=== PATIENT | female | born 1945 | race Asian ===

== ENCOUNTER 2017-01-02 23:33 | Emergency (ER) | payer SELFPAY ==
[2017-01-03 00:41] VITALS: BMI 30.1
[2017-01-03] MEDS ORDERED: SODIUM CHLORIDE 2,000 ML IV ONE (01:26)
[2017-01-03 02:13] LABS: VENOUS BLOOD GAS HCO3 24.1 meq/L (19-25); VENOUS PH 7.42 (7.32-7.42)
[2017-01-03] MEDS ORDERED: CEFTRIAXONE 1 GM in DEXTROSE 5%-WATER - 50 ML IVPB ONE (02:23)
--- NOTE | 2017-01-03 02:23 | PDOC ---
History of Present Illness - General History Source: Patient Exam Limitations: No Limitations - History of Present Illness Initial Comments: 01/03/17 02:26 Patient is a 71 year old female with a significant past medical history of Diabetes, HTN, Hyperthyroidism who presents to the ED with complaints of dysuria that began 3 days ago. Patient reports Dysuria began 3 days ago while at home with no signs of subsiding. She reports experiencing episodes of Urinary urgency secondary to dysuria. Patient reports experiencing intermittent Increased thirst, fever and chills secondary to dysuria. As per patient's daughter, patient had temperature of 101 at 10pm tonight. Daughter states patients fever was lowered after given Tylenol. As Per patient's daughter , patient travelled from [place] 3 months ago. Denies chest pain, SOB. Denies diarrhea, constipation. Denies contact with sick individual. Denies running nose, congestion. Denies nausea, vomiting. Denies any other symptoms. Allergies: None Social history: Lives with daughter. No smoking. No alcohol. No illicit drugs. Surgical history: None PMD: None <Jitendra Simms - Last Filed: 01/03/17 02:26> <Kurt Triplett - Last Filed: 01/03/17 04:07> - General Chief Complaint: SIRS, Suspected/Possible Stated Complaint: FEVER Time Seen by Provider: 01/03/17 01:03 Past History <Jitendra Simms - Last Filed: 01/03/17 02:26> - Suicide/Smoking/Psychosocial Hx Smoking History: Never smoked Have you smoked in the past 12 months: No Information on smoking cessation initiated: No Hx Alcohol Use: No Drug/Substance Use Hx: No <Kurt Triplett - Last Filed: 01/03/17 04:07> - Past Medical History Allergies/Adverse Reactions: Allergies Allergy/AdvReac Type Severity Reaction Status Date / Time No Known Allergies Allergy Verified 01/03/17 00:17 Home Medications: Ambulatory Orders Sulfamethoxazole/Trimethoprim [Bactrim Ds -] 1 tab PO BID #20 tablet 01/03/17 Review of Systems - Review of Systems Constitutional: Yes: Chills, Fever HEENTM: No: Throat Pain Respiratory: No: Cough, Shortness of Breath Cardiac (ROS): No: Chest Pain, Syncope ABD/GI: No: Constipated, Diarrhea, Nausea, Vomiting : Yes: See HPI Neurological: No: Headache Endocrine: Yes: Increased Thirst All Other Systems: Reviewed and Negative <Kurt Triplett - Last Filed: 01/03/17 04:07> *Physical Exam - Vital Signs Last Vital Signs Temp Pulse Resp BP Pulse Ox 97.5 F L 126 H 20 156/72 98 01/03/17 00:17 01/03/17 00:17 01/03/17 00:17 01/03/17 00:17 01/03/17 00:17 - Physical Exam Comments: 01/03/17 02:26 GENERAL: +Warm to touch. The patient is awake, alert, and fully oriented, in no acute distress. HEAD: Normal with no signs of trauma. EYES: Pupils equal, round and reactive to light, extraocular movements intact, sclera anicteric, conjunctiva clear with no pallor. ENT: Ears normal, nares patent, oropharynx clear without exudates. Moist mucous membranes. NECK: Normal range of motion, supple without lymphadenopathy, JVD, or masses. LUNGS: Breath sounds equal, clear to auscultation bilaterally. No wheeze/ crackles. HEART: +Heart rate 125 at resting. Regular rate and rhythm, normal S1 and S2 without murmur or rub. ABDOMEN: +Superpubic discomfort. No CVA tenderness. BS wnl. No guarding or rebound. No palpable masses. No hepatosplenomegaly. EXTREMITIES: Normal range of motion, no edema. No clubbing or cyanosis. No cords, erythema, or tenderness. NEUROLOGICAL: +Neurologically intact. Cranial nerves II through XII grossly intact. Normal speech, normal gait. PSYCH: Normal mood, normal affect. SKIN: Warm, Dry, normal turgor, no rashes or lesions noted. <Jitendra Simms - Last Filed: 01/03/17 02:26> - Vital Signs Last Vital Signs Temp Pulse Resp BP Pulse Ox 97.5 F L 126 H 20 156/72 98 01/03/17 00:17 01/03/17 00:17 01/03/17 00:17 01/03/17 00:17 01/03/17 00:17 <Kurt Triplett - Last Filed: 01/03/17 04:07> Heart Score/ECG Review #1 ECG reviewed & interpreted by me at: 02:21 General ECG Interpretation: Sinus Rhythm, Normal Rate (110), Normal Intervals ( qtc 468), No acute ischemic changes (nonspecific T wave changes laterally (I/AVL , V4-V6). no ST changes.) <Kurt Triplett - Last Filed: 01/03/17 04:07> ED Treatment Course - LABORATORY CBC & Chemistry Diagram: 01/03/17 01:53 01/03/17 01:53 - ADDITIONAL ORDERS Additional order review: Laboratory Results 01/03/17 01:34 VBG pH 7.42 POC VBG pCO2 37.6 L POC VBG pO2 48.6 H Mixed VBG HCO3 24.1 <Jitendra Simms - Last Filed: 01/03/17 02:26> - LABORATORY CBC & Chemistry Diagram: 01/03/17 01:53 01/03/17 01:53 - ADDITIONAL ORDERS Additional order review: Laboratory Results 01/03/17 01:34 VBG pH 7.42 POC VBG pCO2 37.6 L POC VBG pO2 48.6 H Mixed VBG HCO3 24.1 - RADIOLOGY Radiology Studies Ordered: Category Date Time Status CHEST X-RAY PORTABLE* [RAD] Stat Radiology 01/03/17 01:26 Ordered <Kurt Triplett - Last Filed: 01/03/17 04:07> Medical Decision Making - Medical Decision Making 01/03/17 02:17 A portion of this note was documented by scribe services under my direction. I have reviewed the details of the note, within reason, and agree with the documentation with the following case summary and management plan written by me. 71-year-old female with history of diabetes and hypertension, [place] the last 3 months, presents now with 3 days of dysuria/ frequency/urgency and fever today with maximum temperature of 101. Increased thirst, glucose levels have been slightly higher than baseline, no abdominal pain or vomiting. No other infectious complaints. Has distant h/o UTI, no flank pain. tachycardia, afebrile here s/p tylenol at 11pm warm to touch, dry mucosa well appearing otherwise, ambulating and conversant regular tachy, lungs clear abd soft/nt/nd. suprapubic discomfort without guarding/rebound. no CVAT neuro intact, no edema 71y/o F diabetic with UTI sxs for 3d and now fever. tachycardia on arrival, afebrile. ? early sepsis 2/2 UTI, r/o DKA. well appearing here but tachycardia. Family member is a nurse, discussed plan of care. sepsis protocol initiated labs, ua, cultures IV fluids, IV abx CXR reassess and dispo accordingly. Pt and family requesting discharge over admission because patient is traveling and doesn't have insurance. 01/03/17 03:17 Leukocytosis 14.6 with normal differential, normal pH, normal lactate, elevated glucose with normal anion gap. Troponin negative, urinalysis with evidence of infection as suspected. UTI without pyelonephritis and without evidence of end organ injury on workup. Receiving IV fluids, we'll reassess vital signs and discuss disposition, patient and family still refusing admission. 01/03/17 03:50 On my prelim review of CXR, borderline heart size on portable, otherwise no acute disease. HR improved to 90 with IVF, feels well ambulating in the ED without complaints. Daughter, the nurse, at bedside and they request discharge planning. Discussed risk of UTI/sepsis in a diabetic with the RN, who understands and agrees but feels comfortable bringing patient home and will return if needed. Understand return criteria. Received iv ceftriaxone in ED. Will treat with bactrim, sensitivies pending and daughter will call to f/u, can arrange f/u with family Dr. Matt. <Kurt Triplett - Last Filed: 01/03/17 04:07> *DC/Admit/Observation/Transfer - Attestations Scribe Attestion: 01/03/17 02:27 Documentation prepared by Jitendra Simms, acting as medical records director for Kurt Triplett MD, /DO. <Jitendra Simms - Last Filed: 01/03/17 02:26> <Kurt Triplett - Last Filed: 01/03/17 04:07> Diagnosis at time of Disposition: Sepsis Qualifiers: Sepsis type: sepsis due to unspecified organism Qualified Code(s): A41.9 - Sepsis, unspecified organism UTI (urinary tract infection) Qualifiers: Urinary tract infection type: acute cystitis Hematuria presence: without hematuria Qualified Code(s): N30.00 - Acute cystitis without hematuria - Discharge Dispostion Disposition: HOME Condition at time of disposition: Improved - Prescriptions Prescriptions: Sulfamethoxazole/Trimethoprim [Bactrim Ds -] 1 tab PO BID #20 tablet - Referrals Referrals: Carley Matt MD [Staff Physician] - - Patient Instructions Printed Discharge Instructions: DI for Urinary Tract Infection (UTI) Additional Instructions: Activity as tolerated. Stay hydrated. Blood tests and a urine test show a urine infection and elevated glucose levels. The high heart rate was concerning for overwhelming infection, but other blood tests so far look OK. You were given a dose of IV antibiotic in the ER. Take Bactrim as prescribed for 10 days. The culture sensitivities for the infection should be back in 2-3 days. Continue your medications as previously prescribed by your physician. You should follow up with Dr. Matt as soon as possible regarding today's emergency department visit. Return to the emergency department for any new or concerning symptoms, particularly persistent fevers or chills, weakness, persistently elevated glucose, abdominal pain or difficulty urinating.
[2017-01-03 02:25] LABS: BASOPHIL 0.3 % (0-2.0); EOSINOPHIL 0.1 % (0-4.5); MCH 29.1 pg (25.7-33.7); MCHC 33.9 g/dl (32.0-36.0); MEAN PLT VOLUME 9.7 fl (7.5-11.1); NEUTROPHILS 77.4 % (42.8-82.8); PLATELET COUNT 180 K/MM3 (134-434); RDW 12.6 % (11.6-15.6); WHITE BLOOD COUNT 14.5 K/mm3 (4.0-10.0)
[2017-01-03 02:29] LABS: URINE APPEARANCE SLCLOUDY; URINE BILIRUBIN NEGATIVE (NEGATIVE); URINE BLOOD 2+ (NEGATIVE); URINE COLOR LTYELLOW; URINE GLUCOSE (UA) 3+ (NEGATIVE); URINE KETONE 1+ (NEGATIVE); URINE NITRITE POSITIVE (NEGATIVE); URINE PROTEIN NEGATIVE (NEGATIVE); URINE UROBILINOGEN NEGATIVE mg/dL (0.2-1.0)
[2017-01-03 02:36] LABS: INR 0.98 (0.82-1.09); PROTHROMBIN TIME (PATIENT) 11.1 SEC (9.98-11.88)
[2017-01-03 02:39] LABS: ACTIVATED PTT 30.9 SECONDS (26.9-34.4)
[2017-01-03 02:41] LABS: URINE BACTERIA FEW /hpf (NONE SEEN); URINE MUCUS RARE; URINE RBC 1; URINE WBC 94
[2017-01-03 02:48] LABS: ALBUMIN 3.8 g/dl (3.4-5.0); ANION GAP 12 (8-16); BILIRUBIN,TOTAL 1.2 mg/dL (0.2-1.0); CALCIUM 8.8 mg/dL (8.5-10.1); CO2 23 mmol/L (21-32); CREATININE 0.9 mg/dL (0.55-1.02); SGOT/AST 13 U/L (15-37); SGPT/ALT 26 U/L (12-78); TOT PROT 7.5 g/dl (6.4-8.2)
[2017-01-03 02:50] LABS: ALK PHOS 78 U/L (45-117); CPK 105 IU/L (26-192); TROPONIN I < 0.02 ng/ml (0.00-0.05)
[2017-01-03 02:56] LABS: GLUCOSE,RANDOM 332 mg/dL (74-106)
[2017-01-03] MEDS ORDERED: CEFTRIAXONE 1 GM/50 ML BAG ONE (03:52)
[2017-01-03 03:59] VITALS: BP 150/72; PULSE 92; TEMP 98.6
[2017-01-03 10:31] LABS: URINE LEUK ESTERASE 1+ (NEGATIVE)
--- NOTE | 2017-01-03 17:27 | EKG ---
Test Reason : Blood Pressure : / mmHG Vent. Rate : 110 BPM Atrial Rate : 110 BPM P-R Int : 134 ms QRS Dur : 080 ms QT Int : 346 ms P-R-T Axes : 036 021 116 degrees QTc Int : 468 ms SINUS TACHYCARDIA POSSIBLE LEFT ATRIAL ENLARGEMENT NONSPECIFIC ST AND T WAVE ABNORMALITY ABNORMAL ECG NO PREVIOUS ECGS AVAILABLE Confirmed by GEORGIE FORTE, TIAN ([id number]) on 01/03/2017 5:27:35 PM Referred By: Confirmed By:TIAN JACQUES MD
--- NOTE | 2017-01-04 07:50 | PDOC ---
Patient Follow-up (Call Back) - Post ED Follow - Up Condition at time of discharge: Improved Disposition at time of original discharge: HOME Reason for Call Back: Abnwl. Microbiology (Blood cx preliminary shows pending organism with isolate graim stain ( gram - bacilli). Pt seen here yesterday and was given 1 dose of IV ceftriaxone and discharged home with Bactrim. Called pt at home to see how she is feeling. No anawer so left message to call ED @ [phone]. Will await final)
--- NOTE | 2017-01-06 11:06 | PDOC ---
Patient Follow-up (Call Back) - Post ED Follow - Up Condition at time of discharge: Improved Disposition at time of original discharge: HOME Reason for Call Back: Abnwl. Microbiology Signs/Symptoms Improved: Yes - Disposition Additional Instructions/Notes: Patient states she is feeling better and her symptoms have resolved. (+)blood cx 1 bottle with E.coli. Patient is taking Bactrim which bacteria is sensitive.
== END 2017-01-03 04:23 | disposition home or self-care (01) ==
LOC: JER 23:33
DX: N30.00 Acute cystitis without hematuria (principal); A41.9 Sepsis, unspecified organism
CPT/HCPCS: 36415; 71010-TC; 80053; 81003; 81015; 82550; 82803; 83605; 84484; 85025; 85610; 85730; 86850; 86900; 86901; 87040; 87086; 87186; 93005; 93010; 99281-25